=== PATIENT | female | born 2000 | race Caucasian/White ===

== ENCOUNTER 2021-10-20 16:37 | Emergency (ER) | payer BC | END 2021-10-20 18:40 | disposition home or self-care (01) | LOC: JP.ED 16:37 | DX: S06.0X1A Concussion with loss of consciousness of 30 minutes or less, initial encounter (principal); Z88.0 Allergy status to penicillin; Z79.899 Other long term (current) drug therapy; W01.10XA Fall on same level from slipping, tripping and stumbling with subsequent striking against unspecified object, initial encounter | CPT/HCPCS: 99281; 99283 ==